=== PATIENT | female | born 1995 | race Caucasian/White ===

== ENCOUNTER 2023-02-08 09:54 | Outpatient (REF) | payer OTHER, SELFPAY ==
[2023-02-08 10:10] LABS: MANUAL DIFF FLAG NO
[2023-02-08 10:30] LABS: Basophils Absolute Auto 0.1 X10*3/uL (0.0-0.2); Basophils Percent Auto 0.6 % (0-2); Eosinophils Absolute Auto 0.2 X10*3/uL (0.0-0.4); Eosinophils Percent Auto 1.3 % (0-4); Hematocrit 43.8 % (37.0-47.0); Hemoglobin 14.5 g/dl (12.0-16.0); Imm Gran Abs Auto 0.07 X10*3/uL (0.00-0.03); Imm Gran Pct Auto 0.6 % (0.0-0.4); Lymphocytes Absolute Auto 4.6 X10*3/uL (1.2-4.9); Lymphocytes Percent Auto 37.1 % (20-40); Mean Corpuscular HGB Conc 33.1 g/dl (31.0-35.0); Mean Corpuscular Hemoglobin 30.4 pg (27.0-33.0); Mean Corpuscular Volume 91.8 fL (80.0-98.0); Mean Platelet Volume 12.2 fL (9.4-12.3); Monocytes Absolute Auto 0.6 X10*3/uL (0.1-1.2); Monocytes Percent Auto 5.1 % (2-11); Neutrophils Absolute Auto 6.9 x10*3/uL (2.0-8.3); Neutrophils Percent Auto 55.3 % (45-73); Platelet Count 245 X10*3/uL (160-400); Red Blood Count 4.77 X10*6/uL (4.20-5.50); Red Cell Distribution Width 13.1 % (11.0-16.0); White Blood Count 12.5 X10*3/uL (4.8-10.8)
[2023-02-08 11:24] LABS: Alanine Aminotransferase 23 U/L (0-31); Albumin Level 4.2 g/dL (3.5-5.0); Alkaline Phosphatase 75 U/L (39-117); Anion Gap 14 (12-20); Aspartate Amino Transferase 15 U/L (5-31); Bilirubin Total 0.4 mg/dL (0.0-1.0); Blood Urea Nitrogen 9 mg/dL (9-16); Calcium 9.8 mg/dL (8.4-10.2); Carbon Dioxide 20 mmol/L (22-29); Chloride 109 mmol/L (96-108); Cholesterol 181 mg/dL (<200); Estimated Glomerular Filt Rate > 60; Glucose Fasting 79 mg/dL (60-99); HDL Cholesterol 57 mg/dL (>40); LDL Cholesterol Calculated 92 mg/dL (<100); Potassium 4.1 mmol/L (3.3-5.1); Sodium 139 mmol/L (135-145); Total Protein 7.4 g/dL (6.5-8.0); Triglycerides 160 mg/dL (<150)
[2023-02-08 11:38] LABS: TSH reflex Free T4 1.93 uIU/mL (0.32-4.0)
[2023-02-08 13:56] LABS: Syphilis Screen Nonreactive (Nonreactive)
[2023-02-10 03:53] LABS: HBS Num1 0.35 mIU/mL (0-7.99); HBc Num1 0.07 S/CO (0.00-0.79); HBsAGNum1 0.25 S/CO (0.00-0.99); HIV AB/AG Nonreactive (Nonreactive); HIV Num 1 0.04 S/CO (0.00-0.99); Hepatitis B Core Antibody Nonreactive (Nonreactive); Hepatitis B Surface Antigen Negative (Negative); ~HepC Num1 0.03 S/CO (0.00-0.79); ~Hepatitis B Surface Antibody NONREACTIVE (Nonreactive); ~Hepatitis C Antibody Nonreactive (Nonreactive)
== END 2023-02-08 09:55 | disposition home or self-care (01) ==
LOC: HO.LAB 09:54
PROVIDERS: PCP Family Medicine; Visit Provider Family Medicine
DX: Z00.00 Encounter for general adult medical examination without abnormal findings (principal); Z20.2 Contact with and (suspected) exposure to infections with a predominantly sexual mode of transmission; I10 Essential (primary) hypertension
CPT/HCPCS: 36415; 80053; 80061; 84443; 85025; 86704; 86706; 86780; 86803; 87340; 87389

== ENCOUNTER 2023-02-14 15:36 | Outpatient (AMB) | payer OTHER, SELFPAY ==
--- NOTE | 2023-02-14 15:38 | A.OFFPC_ITS ---
Vital Signs 02/14/23 15:43 Height 5 ft 3 in Weight 204 lb 7 oz BMI 36.2 BP 120/72 Blood Pressure Location Lt brachial Position Sitting Pulse 88 Pulse Source Pulse Oximeter Pulse Oximetry (%) 99 Oxygen Delivery Method Room Air Intake Visit Reasons: CPE with f/u labs and health maintenance Intake Note: Patient is here for her physical today. She would like to revisit migraine situation, still experiencing. She also had her labs done. Allergies No Known Allergies Allergy (Verified 02/14/23 15:42) Tobacco use date assessed: 02/14/23 HPI CPE with f/u labs and health maintenance HPI Details 27 y/o female presents for a CPE with f/ u labs and health maintenance. Labs were drawn 02/08/23. Reviewed labs with pt. WBC elevated at 12.5. Pt states she feels fine. 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 Triglycerides 160. TC 181. LDL 92. HDL 57. Pt reports ongoing migraines. She reports she keeps herself active. 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 Cognitive needs: No Hearing needs: No Vision needs: No Review of Systems Const Denies chills, Denies fatigue, Denies fever(s), Denies headache(s) and Denies weakness Eyes Denies change in vision ENT Denies dizziness, Denies headache(s), Denies hearing loss, Denies nasal congestion, Denies sinus pain, Denies sinus pressure and Denies sore throat Card Denies chest pain, Denies lightheadedness, Denies dyspnea and Denies other (palpitations) Resp Denies cough, Denies dyspnea and Denies wheezing GI Denies abdominal pain, Denies melena, Denies hematochezia, Denies change in bowel habits, Denies dyspepsia and Denies nausea Denies hematuria and Denies dysuria Musc Denies abnormal gait, Denies myalgias, Denies arthralgias, Denies numbness and Denies tingling Skin/Breast Denies rash, Denies unusual bruising and Denies wounds Neuro Denies abnormal gait, Denies dizziness, Denies headache(s), Denies memory loss, Denies numbness, Denies Sensory deficit (Neuro), Denies tingling and Denies weakness Psych Denies anxiety, Denies depression and Denies memory loss Endo Denies cold intolerance, Denies fatigue, Denies heat intolerance, Denies polydipsia and Denies polyuria Jean/Lymph Denies easy bleeding and Denies easy bruising Aller/Immun Denies wheezing Physical exam (Primary Care) Vital Signs: Last Vital Signs Pulse 88 02/14/23 15:43 BP 120/72 02/14/23 15:43 Pulse Ox 99 02/14/23 15:43 Oxygen Delivery Method Room Air 02/14/23 15:43 BMI result Body Mass Index 36.2 Tobacco/Smoking Status: Tobacco use Status Tobacco use date assessed 02/14/23 02/14/23 15:47 Patient Tobacco Use Status Never used Tobacco 02/14/23 15:40 e-Cigarette/Vaping Use Never Used 02/14/23 15:47 Const General: no acute distress, well developed, alert and awake Nutritional Appearance: well nourished Orientation/consciousness: patient oriented x3 HENMT Head: Yes normocephalic and Yes atraumatic Ears: hearing grossly normal bilaterally and TM's normal bilaterally General nose exam: Normal external nose present and Normal nares present Mouth: Normal oral and palatal mucosa present and moist mucous membranes Teeth and gingiva: dentition normal Throat: Yes posterior oropharynx normal Eyes General: appearance normal, both eyes and all related structures Pupils: Equal, round and reactive pupils present and Pupil accommodation reflex normal EOM: EOMs intact bilaterally Neck Neck: Yes normal visual inspection, Yes no lymphadenopathy and Yes trachea midline Thyroid: Thyroid normal Carotids: no bruits Lymphatic: no lymphadenopathy noted Chest Chest palpation & inspection: normal inspection of the chest Resp Effort & Inspection: normal respiratory effort Auscultation: clear to auscultation bilaterally Cardio Rate: regular rate Rhythm: regular rhythm Heart sounds: S1 normal heart sound present, S2 normal heart sound present, no gallops, no murmurs and no rubs Bruits: no abdominal aortic bruits and no carotid bruits GI Palpation (GI): No Abdominal aortic bruit present, Soft to palpation, nontender, No hepatosplenomegaly present and No Rebound tenderness present Auscultation: normal bowel sounds General: Yes no CVA tenderness Back/Spine/Pelvis Back: no CVA tenderness Cervical Spine: cervical ROM normal and No Cervical spine tenderness Thoracic/Lumbar Spine: thoraco-lumbar ROM normal, No pain with thoraco-lumbar ROM, No thoracic spinal tenderness and No lumbar spinal tenderness Skin Lesions: no lesions Rashes: no rashes Trauma: no lacerations or abrasions Wounds: no wounds Nails: normal Neuro General: patient oriented x3 Cranial nerves: Yes Equal, round and reactive pupils present Cognition (Neuro): normal cognition Gait exam (Neuro): Normal gait present Motor exam (neuro): 5/5 motor strength present throughout Sensory Exam: No Sensory deficit (Neuro) Deep tendon reflexes (DTR's): Right patellar reflex intensity grade: 2+ and Left patellar reflex intensity grade: 2+ Extrem General: Yes normal to inspection and No edema Psych Appearance: grossly normal Affect: normal affect Attitude: cooperative Thought process: Normal thought process present Assessment and Plan Assessment & Plan (1) Adult general medical exam: Code(s): Z00.00 - Encounter for general adult medical examination without abnormal findings Plan: 27-year-old?female?presents?for?complete?physical?exam Encouraged?healthy?diet?with?active?lifestyle?and?plenty?of?exercise (2) Elevated WBC count: Code(s): D72.829 - Elevated white blood cell count, unspecified Plan: Elevated?white?blood?count?and?patient?notes?that she?may?have?been?mildly?ill?prior?to?getting?labs?done (3) Migraines: Code(s): G43.909 - Migraine, unspecified, not intractable, without status migrainosus Plan: Patient?gets?migraines?with?classic?aura?which?manifests?as?visual?disturbances? which?interfere?with?driving?and?working. Was?unable?to?get?sumatriptan?due?to?some?insurance?issues?but?she?would?like?to ?try?again?so?I?have?sent?refill. Will?give?her?a?letter?for?work?letting?them?know?that?when?she?has?a?migraine?s tart ing,?she?may?not?be?able?to?get?to?work?due?to?visual?disturbances.??Also?she?ma y?need?to?take?some?time?to?rest?when?or?begins. Also?discussed?with?her?she?may?want?to?consider?FMLA?intermittent?lekay e?and?she?will?look?into?this Medications: Refilled sumatriptan succinate take 1 tab at onset of headache; if no relief may repeat 1 tab after at least 2 hrs; max = 4 tabs/24 hr PO 30 days 12 tabs 2RF Coding Level of Care Code Est Pt Prev Care 18-39y(60048) Diagnoses Adult general medical exam Z00.00 Elevated WBC count D72.829 Migraines G43.909
[2023-02-14 15:43] VITALS: BP 120/72; PULSE 88; O2SAT 99; BMI 36.2
== END 2023-02-14 16:05 | disposition home or self-care (01) ==
PROVIDERS: PCP Family Medicine; Visit Provider Family Medicine
DX: Z00.00 Encounter for general adult medical examination without abnormal findings (principal); D72.829 Elevated white blood cell count, unspecified; G43.909 Migraine, unspecified, not intractable, without status migrainosus
CPT/HCPCS: 99395

== ENCOUNTER 2023-03-05 13:41 | Outpatient (AMB) | payer OTHER, SELFPAY ==
--- NOTE | 2023-03-05 13:45 | MHC.OFFVIS ---
Intake Vital Signs 03/05/23 13:46 Height 5 ft 3 in Weight 195 lb BMI 34.5 BP 112/76 Intake Visit Reasons: New patient Annual Intake Note: Scribed for Yaima Benavides CNM by Sirena Amos paramedical aide, on 03/05/2023 at 1:57 PM, EST. Robotics Testing Technician: Robotics Testing Technician Present (Rola) Allergies No Known Allergies Allergy (Verified 03/05/23 13:46) HPI HPI Comments History of Present Illness Details She is a premenopausal woman presenting for annual examination. Doing well with no engineer system administrator concerns. She has a history of endometriosis (non surgical eval.). ~ Occasional flare ups.Treatment plan is continuous use of BC. She tries to eat healthy and stays active with exercise. No monthly menses. Currently on BC, Apri, takes continuously. She denies vaginal itching and irritation. STI screening offered; she declines. Reports that she is UTD. Was done within the last year at her last practice. Records unavailable. Denies family history of breast, ovarian or colon cancer. Paternal grandmother, diabetes. Last pap smear 02/01/2021, was negative. Migraine with aura.~Started 3 years ago.~Ongoing.She reports that she has a rescue medication that helps with her headaches . Followed by PCP. 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 Sexual orientation: Straight/Heterosexual Gender identity: Female Cognitive needs: No Hearing needs: No Vision needs: No Female Reproductive History Menstrual control method: pills Total pregnancies: 0 Date of last pap smear: 02/01/21 (neg) Review of Systems Const All systems reviewed & are unremarkable except as noted in HPI and below Reports as per HPI Eyes Reports no additional complaints ENT Reports no additional complaints Card Reports no additional complaints Resp Reports no additional complaints GI Reports as per HPI and Reports no additional complaints Reports as per HPI Musc Reports no additional complaints Skin/Breast Reports as per HPI Neuro Reports no additional complaints Psych Reports no additional complaints Endo Reports no additional complaints Jean/Lymph Reports no additional complaints Aller/Immun Reports no additional complaints Physical Exam Vital Signs: Last Vital Signs BP 112/76 03/05/23 13:46 BMI result Body Mass Index 34.5 Const General: cooperative, healthy appearing, no acute distress, well developed and alert Orientation/consciousness: patient oriented x3 HEENT Head: Yes normal to inspection Eyes General: appearance normal, both eyes and all related structures Neck Neck: Yes normal visual inspection Thyroid: Thyroid normal Chest Chest palpation & inspection: normal inspection of the chest and other (no puckering, dimpling, peau de orange, retraction, discharge, masses) Breast/axilla inspection: normal inspection of the breasts Breast/axilla palpation: normal palpation of the breasts Resp Effort & Inspection: normal respiratory effort GI Inspection: Yes normal to inspection Palpation (GI): Soft to palpation Rectal Exam - Female: deferred General: Yes bladder normal to palpation External Female Exam: normal external appearance and normal appearance of the urethra Speculum Exam - Vagina: normal appearance of the vagina, normal palpation and normal vaginal discharge Speculum Exam - Cervix: normal appearance of the cervix and normal palpation Bimanual exam- vagina & uterus: normal bimanual exam, normal palpation, uterine size normal, bladder normal to palpation, normal palpation and non-tender Bimanual Exam- Adnexa, other: no masses Skin General skin exam: no rashes or lesions noted Rashes: no rashes Neuro General: patient oriented x3 Cognition (Neuro): normal cognition Extrem General: Yes normal to inspection Psych Attitude: cooperative Thought process: Normal thought process present Assessment & Plan Assessment & Plan (1) Encounter for annual routine gynecological examination: Code(s): Z01.419 - Encounter for gynecological examination (general) (routine) without abnormal findings Plan: Discussed: Current recommendations for pap smears per ASCCP guidelines. Breast awareness and periodic self breast exams. Maintaining a healthy lifestyle including a well balanced diet and routine exercise. Encouraged condom use for STD and prevention. Encouraged patient to sign up for patient portal. Request all pertinent medical records from [facility] (notes/[place]) and the additional [place] practice last year. All of her questions and concerns were addressed to the best of my ability She will return in one year for AG. (2) Counseling for control, oral contraceptives: Code(s): Z30.09 - Encounter for other general counseling and advice on contraception Plan: Counseled about progesterone, IUD, implant or pill. She would like to stay on the pill. Warnings: go to ER if and loss of vision/blindness, severe headache, chest pain or difficulty breathing, severe abdominal pain, or any pain or swelling in an extremity. RTO for pill check in 3 months. Medications: New norethindrone (contraceptive) (Ela) 0.35 mg PO DAILY 90 tabs 1RF OCP 90 days Coding Level of Care Code New Pt Prev Care 18-39yr(05135 Diagnoses Encounter for annual routine gynecological examination Z01.419 Counseling for control, oral contraceptives Z30.09
[2023-03-05 13:46] VITALS: BP 112/76; BMI 34.5
== END 2023-03-05 14:50 | disposition home or self-care (01) ==
PROVIDERS: PCP Family Medicine; Visit Provider Advanced Practice Midwife
DX: Z01.419 Encounter for gynecological examination (general) (routine) without abnormal findings (principal); Z30.09 Encounter for other general counseling and advice on contraception
CPT/HCPCS: 99385

== ENCOUNTER → 2023-03-05 13:41 | Outpatient (BNVA) | payer OTHER, SELFPAY | PROVIDERS: PCP Family Medicine; Visit Provider Advanced Practice Midwife ==

== ENCOUNTER 2023-06-10 15:22 | Outpatient (AMB) | payer OTHER, SELFPAY ==
--- NOTE | 2023-06-10 15:32 | A.OFFVIS_ITS ---
Intake Vital Signs 06/10/23 15:33 Height 5 ft 3 in Weight 196 lb BMI 34.7 BP 100/66 Intake Visit Reasons: 3 month pill check Survey Coordinator: Survey Coordinator Present Allergies No Known Allergies Allergy (Verified 06/10/23 15:33) Is last menstrual period known: Yes HPI HPI Comments History of Present Illness Details Patient is here for a follow-up on her blood pressure and pill check. History of migraines with aura. She reports doing well with the Agnes initially she had some breakthrough bleeding, she is taking her pill on time, has no other concerns. 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 Sexual orientation: Straight/Heterosexual Gender identity: Female Cognitive needs: No Hearing needs: No Vision needs: No Review of Systems Const All systems reviewed & are unremarkable except as noted in HPI and below Endo Reports no additional complaints Physical Exam Vital Signs: Last Vital Signs BP 100/66 06/10/23 15:33 BMI result Body Mass Index 34.7 Const General: cooperative, healthy appearing and no acute distress Psych Appearance: well kempt Attitude: cooperative Thought process: Normal thought process present Assessment & Plan Assessment & Plan (1) Surveillance for control, oral contraceptives: Code(s): Z30.41 - Encounter for surveillance of contraceptive pills Plan control hormone use warnings: go to ER if and loss of vision, blindness, severe headache, chest pain or difficulty breathing, severe abdominal pain, or any pain or swelling in an extremity. Efficacy of progesterone only pills, additional backup if needed for intimacy. Discussed migraine triggers self-help measures and website recommendations for review consider magnesium at bedtime initial dosing and brand. The schedule annual exam for February 2024. All of her questions and concerns were addressed to the best of my ability and shared decision making. She is agreeable to the plan of care. This note is constructed using voice recognition software. While every effort has been made to ensure accuracy, business center representative errors may have been included. Medications: Refilled norethindrone (contraceptive) (Ela) 0.35 mg PO DAILY 90 days 90 tabs 3RF OCP Coding Level of Care Code Est Pt Level 3 (56883) Diagnoses Surveillance for control, oral contraceptives Z30.41
[2023-06-10 15:33] VITALS: BP 100/66; BMI 34.7
== END 2023-06-10 15:54 | disposition home or self-care (01) ==
LOC: HO.HWS 15:23
PROVIDERS: PCP Family Medicine; Visit Provider Advanced Practice Midwife
DX: Z30.41 Encounter for surveillance of contraceptive pills (principal)
CPT/HCPCS: 99213

== ENCOUNTER → 2023-06-10 15:22 | Outpatient (BNVA) | payer OTHER, SELFPAY | PROVIDERS: PCP Family Medicine; Visit Provider Advanced Practice Midwife ==

== ENCOUNTER 2023-12-16 09:51 | Outpatient (AMB) | payer OTHER, SELFPAY ==
--- NOTE | 2023-12-16 09:58 | A.OFFVIS_ITS ---
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 Allergies No Known Allergies Allergy (Verified 12/16/23 10:10) Medication List - Last Reconciled 12/16/23 by KIM Perez levocetirizine (Xyzal) 5 mg PO DAILY norethindrone (contraceptive) (Ela) 0.35 mg PO DAILY 90 days sumatriptan succinate take 1 tab at onset of headache; if no relief may repeat 1 tab after at least 2 hrs; max = 4 tabs/24 hr PO 30 days HPI Comments Details: Right-handed 28-yr-old female presents for new pt evaluation of headache disorder. Pt reports pt reports she had had migraine w/ visual since age 19, which has been worsening in the last 3 yrs. She now can have visual aura w/o headache. 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 PMH and ROS are notable for:? Musculoskeletal disorders or injury: .Chronic neck and back pain. Had mayo mammoplasty which helped. Sees a chiropractor and has massage routinely. GI d/o: GERD, h/o gluten intolerance. 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 Family history of migraine or other headache disorder: mother and sister- have migraine but neither have aura. Pertinent denials include: History of concussion/head injury, Mood d/o, Sleep d/o, Respiratory d/o, CV disease, Clotting or hematology d/o, Endocrine d/o, metabolic d/o, History of seizure, syncope, or drop attacks, Constipation, Leg Cramps, Family history of migraine or other headache disorder Lifestyle considerations: Sleep routine: Usual bedtime: 10pm and wake-up time: 6am Sleep difficulties: Uses melatonin every other night. Mild snoring. Fatigue/sleepiness. 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 Family planning: none at this time. Headache questionnaire:? Age/time of onset: 19 Preceding causes: no known causes Previous work-up: denies Typical headache characteristics: Prodrome symptoms: Unsure. Possibly Yawning. Aura: Bilateral, though one side will be worse) Starts to see floaters, feels a bit disconnected, head feels tighter, will have holes in her vision or see squiggly lines- x's up to an hour. Has 15-20 minutes before vision would impair driving. Pain intensity: moderate-severe Location, quality, characteristics: throbbing pain in bilateral temples, top of head. Occipital/upper neck tightness. Associated symptoms: photophobia, phonophobia, nausea, feels hot, not right in space dizziness, fatigue, cognitive difficulties/word finding difficulties, activity intolerance, bilateral facial numbness. Postdrome: Lingering visual-spacial distortion (this can occur w/wo headache component) Triggers: sounds, stress, weather changes, certain foods: hot dogs Menstrual cycle- never noticed- but cycle stopped at age 16. Time of day: More in mid-day 11am-3pm, but can wake up w/ migraine. Duration and Frequency: 6-7 milder-mod headaches in the past month, During the school year, she has 2-3 visual auras per week, and 1 full migraine w/ aura attack can last 5-6-12hrs or more and occur 1 day per week. How does headache impact your life? has had to miss work. or go into work late, leave early or sometimes stay late as she could not drive home. Current acute medication use/interventions: Tylenol helps milder headaches. Sumatriptan 50mg helps some after a while but causes intense sleepiness and cannot stay at work if she takes it. Current preventative medication use: None Non-pharmacological interventions: Ice on back of her head. Caffeine, sugar. Rests in a dark/quiet place. [facility] Medical History (Updated 12/22/23 @ 15:11 by KIM Perez) Endometriosis Migraine with aura Seasonal allergies Surgical History Hx of bilateral breast reduction surgery Hx of wisdom tooth extraction Hx of tonsillectomy H/O left knee surgery Family History Mother Hypertension Father Hypertension Paternal Grandmother Diabetes Social History Housing: House Alcohol intake: current Alcohol intake frequency: a few times a month Patient Tobacco Use Status: Never used Tobacco e-Cigarette/Vaping Use: Never Used service: No Current occupational status: employed 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 Bilateral mild posterior cervical tightness. Cervical ROM: full Left Spurling: normal Right Spurling: normal. General: patient oriented x3 Cranial nerves: Yes CN's II-XII intact bilaterally Cognition (Neuro): normal cognition Gait exam (Neuro): Normal gait present Motor exam (neuro): 5/5 motor strength present throughout Deep tendon reflexes (DTR's): Right triceps reflex intensity grade: 2+, Left triceps reflex intensity grade: 2+, Rt Biceps (C5, C6): 2+, Left biceps reflex intensity grade: 2+, Right brachioradialis reflex intensity grade: 2+, Left brachioradialis reflex intensity grade: 2+, Right patellar reflex intensity grade: 2+ and Left patellar reflex intensity grade: 2+ Coordination: [id number] test normal, tandem gait normal and Romberg test negative Pupils: Normal pupillary reactivity/response: bilateral Psych Appearance: grossly normal Mental Status: mental status grossly normal Speech and movement: Normal speech and movement present Affect: normal affect Attitude: cooperative Thought process: Normal thought process present Assessment & Plan Assessment & Plan (1) Snoring: Code(s): R06.83 - Snoring Category: Medical (2) Sleep difficulties: Code(s): G47.9 - Sleep disorder, unspecified Category: Medical (3) Migraine with aura: Code(s): G43.109 - Migraine with aura, not intractable, without status migrainosus Category: Medical (4) Excessive daytime sleepiness: Comment: ESS 10 Code(s): G47.19 - Other hypersomnia Category: Medical Plan Pt advised to undergo the following studies, however pt requests we hold initiating orders until she has a new insurance plan (her current plan expires 12/20/23). She will call us when she has new insurance. Brain MRI w/wo to assess for secondary etiology of headache a/w bilateral facial numbness and episodes visual aura w/o headache. HST to assess for sleep apnea For overall headache management: * Optimize good self-care, including but not limited to maintaining a healthy diet, adequate fluid intake, adequate sleep, and engaging in regular physical activity. * Track headaches, especially after any treatment regimen changes. Migraine famPlus is one of many headache tracking apps. * Information shared on non-pharmacological interventions which may help to alleviate headache attack burden. For sound sensitivity: Patent may benefit from trying noise cancellation ear plugs. Neuromodulation devices, which can be used alone or with pharmacological treatment. For acute headache treatment: Discussed importance of taking acute medications at the first sign of headache, however stressed importance of avoiding acute medication overuse (especially with combined headache medications). Trial Rizatriptan 10mg tab, 1/2 - 1 tab (5-10mg) at onset of headache, may repeat in 2 hours. Max of 2 tabs (200mg) per 24 hours. May adjunct with OTC Tylenol 650mg every 4 hours, Ibuprofen (liquigel) 600mg every 6 hours, or Naproxen (liquigel) 440mg every 12 hrs as needed. Potential adverse effects of triptans, include but are not limited to nausea, fatigue, chest tightness/tingling (usually passes within a few minutes), medication overuse headaches. Previous acute migraine medication trials: Sumatriptan 50mg not fully effective, and caused profound sleepiness. Acute migraine medication contraindications: None at this time For headache prevention medication: Preventative medications should be taken routinely as prescribed for best effect, it may take several weeks for full effect to take effect. Start Riboflavin 400mg qam Continue OTC Magnesium Glycinate 400mg qhs Start Amitriptyline 10-20mg qhs, Potential adverse effects of TCAs, including but not limited to fatigue, cardiac arrhythmias, mood changes. Previous migraine prevention medication trials: None Migraine prevention medication contraindications: None at this time Pt seen in collaboration w/ Dr Yeni Brown. Pt to follow-up in 4-6 months or sooner prn. Medications: Discontinued sumatriptan succinate Discontinued Reason: Doctor's Order take 1 tab at onset of headache; if no relief may repeat 1 tab after at least 2 hrs; max = 4 tabs/24 hr PO 30 days 12 tabs 2RF Coding Level of Care Code New Pt Level 4 (85762) Diagnoses Snoring R06.83 Sleep difficulties G47.9 Migraine with aura G43.109 Excessive daytime sleepiness G47.19
[2023-12-16 09:59] VITALS: BP 114/80; PULSE 88; O2SAT 98; BMI 34.4
== END 2023-12-16 11:50 | disposition home or self-care (01) ==
PROVIDERS: PCP Family Medicine; Visit Provider Nurse Practitioner Family
DX: R06.83 Snoring (principal); G47.9 Sleep disorder, unspecified; G43.109 Migraine with aura, not intractable, without status migrainosus; G47.19 Other hypersomnia
CPT/HCPCS: 99204

== ENCOUNTER → 2023-12-16 09:51 | Outpatient (BNVA) | payer OTHER, SELFPAY | PROVIDERS: PCP Family Medicine; Visit Provider Nurse Practitioner Family ==

== ENCOUNTER 2024-02-16 15:57 | Outpatient (AMB) | payer OTHER, SELFPAY ==
--- NOTE | 2024-02-16 16:09 | MHC.PC.OV ---
Vital Signs 02/16/24 16:15 Height 5 ft 3 in Weight 193 lb 6 oz BMI 34.3 BP 117/69 Blood Pressure Location Lt brachial Position Sitting Respiration 16 Pulse 84 Pulse Source Pulse Oximeter Temp 97.7 F Temp Source Temporal Artery Scan Pulse Oximetry (%) 98 Oxygen Delivery Method Room Air Intake Visit Reasons: CPE with f/u labs and health maintenance Intake Note: CPE Is last menstrual period known: No Post menopausal: No Patient : No Allergies No Known Allergies Allergy (Verified 02/16/24 16:10) Medication List - Last Reviewed 02/16/24 by LUCHO Schreiber amitriptyline 10 - 20 mg (1 - 2 x 10 mg) PO BEDTIME 30 days levocetirizine (Xyzal) 5 mg PO DAILY norethindrone (contraceptive) (Ela) 0.35 mg PO DAILY 90 days riboflavin (vitamin B2) 400 mg PO DAILY 30 days rizatriptan 5 - 10 mg (0.5 - 1 x 10 mg) PO Q2H PRN 21 days spironolactone 150 mg PO BID Tobacco use date assessed: 02/16/24 Dental Screening Dental Screen Date: 02/16/24 Did you have a dental visit in the last 12 months?: Yes Did you have a dental problem in the last 6 months where you did not have access to dental care?: No Was dental information given to patient?: Patient has dentist HPI CPE with f/u labs and health maintenance HPI Details 28 y/o female presents for a CPE with f/u labs and health maintenance. No recent labs to review. PFSH Medical History (Updated 12/22/23 @ 15:11 by KIM Perez) Endometriosis Migraine with aura Seasonal allergies Surgical History Hx of bilateral breast reduction surgery Hx of wisdom tooth extraction Hx of tonsillectomy H/O left knee surgery Family History Mother Hypertension Father Hypertension Paternal Grandmother Diabetes Social History (Updated 02/16/24 @ 16:13 by LUCHO Schreiber) Housing: House Alcohol intake: current Alcohol intake frequency: a few times a month Patient Tobacco Use Status: Never used Tobacco e-Cigarette/Vaping Use: Never Used Use of substances other than those prescribed or required for medical reasons: No Patient : No service: No Current occupational status: employed 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 1. Little interest or pleasure in doing things: not at all 2. Feeling down, depressed, or hopeless: not at all 3. Trouble falling or staying asleep, or sleeping too much: not at all 4. Feeling tired or having little energy: several days 5. Poor appetite or overeating: not at all 6. Feeling bad about yourself - or that you are a failure or have let yourself or your family down: not at all 7. Trouble concentrating on things, such as reading the newspaper or watching television: several days 8. Moving or speaking so slowly that other people could have noticed. Or the opposite - being so fidgety or restless that you have been moving around a lot more than usual: not at all 9. Thoughts that you would be better off or of hurting yourself in some way: not at all Total score: 2 Depression Screening Interpretation: Negative Depression Screening Done: Yes 17819 - PHQ-9 Billing: Yes Source: Developed by Drs. Jacky Alas, Domenica Gonzales, Filipe Tomlinson and colleagues, with an educational natacha from [employer]. Thrive Questionnaire Date Thrive assessed: 02/16/24 I am a: Patient What is your living situation today?: I have a steady place to live Within the past 12 months, did the food you bought not last and you didn't have the money to get more?: Never true Within the past 12 months, did you worry whether your food would run out before you got money to buy more?: Never true Do you have trouble paying for medicines?: No Do you have trouble getting transportation to medical appointments?: No Do you have trouble paying your heating and electricity bill?: No Do you have trouble taking care of your child, family member or friend?: No Do you have trouble with day-to-day activities such as bathing, preparing meals, shopping, managing finances, etc.?: No Are you currently unemployed and looking for a job?: No Are you interested in more education?: No Please select the resources that you would like help with: None Currently or been in a relationship where the following occur: No concerns reported THRIVE Score: 0 AUDIT C Alcohol Use Questionnaire (AUDIT-C) 1. How often do you have a drink containing alcohol?: 2-4 times a month 2. How many drinks containing alcohol do you have on a typical day when you are drinking?: 1 or 2 3. How often do you have six or more drinks on one occasion?: Less than monthly Total Score: 3 KELLY-7 AMB Questionnaire KELLY-7 Date KELLY - 7 assessed: 02/16/24 Feeling nervous, anxious, or on edge: 0 = Not at all Not being able to stop or control worryin = Not at all Worrying too much about different things: 0 = Not at all Trouble relaxin = Not at all Being so restless that it is hard to sit still: 0 = Not at all Becoming easily annoyed or irritable: 0 = Not at all Feeling afraid as if something awful might happen: 0 = Not at all Total KELLY-7 score (0-4 normal; 5-9 mild; 10-14 moderate; 15-21 severe): 0 Source: Developed by Drs. Jacky Alas, Domenica Gonzales, Filipe Tomlinson and colleagues, with an educational natacha from [employer]. KELLY-7 Assessment Billing KELLY-7 Assessment Tool: KELLY-7 Assessment 55870 Review of Systems Const Denies chills, Denies fatigue, Denies fever(s), Denies headache(s) and Denies weakness Eyes Denies change in vision ENT Denies dizziness, Denies headache(s), Denies hearing loss, Denies nasal congestion, Denies sinus pain, Denies sinus pressure and Denies sore throat Card Denies chest pain, Denies lightheadedness, Denies dyspnea and Denies other (palpitations) Resp Denies cough, Denies dyspnea and Denies wheezing GI Denies abdominal pain, Denies melena, Denies hematochezia, Denies change in bowel habits, Denies dyspepsia and Denies nausea Denies hematuria and Denies dysuria Musc Denies abnormal gait, Denies myalgias, Denies arthralgias, Denies numbness and Denies tingling Skin/Breast Denies rash, Denies unusual bruising and Denies wounds Neuro Denies abnormal gait, Denies dizziness, Denies headache(s), Denies memory loss, Denies numbness, Denies Sensory deficit (Neuro), Denies tingling and Denies weakness Psych Denies anxiety, Denies depression and Denies memory loss Endo Denies cold intolerance, Denies fatigue, Denies heat intolerance, Denies polydipsia and Denies polyuria Jean/Lymph Denies easy bleeding and Denies easy bruising Aller/Immun Denies wheezing Physical exam (Primary Care) Vital Signs: Last Vital Signs Temp 97.7 F 02/16/24 16:15 Pulse 84 02/16/24 16:15 Resp 16 02/16/24 16:15 BP 117/69 02/16/24 16:15 Pulse Ox 98 02/16/24 16:15 Oxygen Delivery Method Room Air 02/16/24 16:15 BMI result Body Mass Index 34.3 Tobacco/Smoking Status: Tobacco use Status Tobacco use date assessed 02/16/24 02/16/24 16:13 Patient Tobacco Use Status Never used Tobacco 02/16/24 16:13 e-Cigarette/Vaping Use Never Used 02/16/24 16:13 PHQ-9: PHQ-9 Score PHQ-9: Total score 2 02/16/24 16:14 Depression Screening Interpretation: Negative Thrive Assessment: Date of Thrive Assessment Date Thrive assessed 02/16/24 02/16/24 16:14 Currently or been in a relationship where the following occur: No concerns reported Const General: no acute distress, well developed, alert and awake Nutritional Appearance: well nourished Orientation/consciousness: patient oriented x3 HENMT Head: Yes normocephalic and Yes atraumatic Ears: hearing grossly normal bilaterally and TM's normal bilaterally General nose exam: Normal external nose present and Normal nares present Mouth: Normal oral and palatal mucosa present and moist mucous membranes Teeth and gingiva: dentition normal Throat: Yes posterior oropharynx normal Eyes General: appearance normal, both eyes and all related structures Pupils: Equal, round and reactive pupils present and Pupil accommodation reflex normal EOM: EOMs intact bilaterally Neck Neck: Yes normal visual inspection, Yes no lymphadenopathy and Yes trachea midline Thyroid: Thyroid normal Carotids: no bruits Lymphatic: no lymphadenopathy noted Chest Chest palpation & inspection: normal inspection of the chest Resp Effort & Inspection: normal respiratory effort Auscultation: clear to auscultation bilaterally Cardio Rate: regular rate Rhythm: regular rhythm Heart sounds: S1 normal heart sound present, S2 normal heart sound present, no gallops, no murmurs and no rubs Bruits: no abdominal aortic bruits and no carotid bruits GI Palpation (GI): No Abdominal aortic bruit present, Soft to palpation, nontender, No hepatosplenomegaly present and No Rebound tenderness present Auscultation: normal bowel sounds General: Yes no CVA tenderness Back/Spine/Pelvis Back: no CVA tenderness Cervical Spine: cervical ROM normal and No Cervical spine tenderness Thoracic/Lumbar Spine: thoraco-lumbar ROM normal, No pain with thoraco-lumbar ROM, No thoracic spinal tenderness and No lumbar spinal tenderness Skin Lesions: no lesions Rashes: no rashes Trauma: no lacerations or abrasions Wounds: no wounds Nails: normal Neuro General: patient oriented x3 Cranial nerves: Yes Equal, round and reactive pupils present Cognition (Neuro): normal cognition Gait exam (Neuro): Normal gait present Motor exam (neuro): 5/5 motor strength present throughout Sensory Exam: No Sensory deficit (Neuro) Deep tendon reflexes (DTR's): Right patellar reflex intensity grade: 2+ and Left patellar reflex intensity grade: 2+ Extrem General: Yes normal to inspection and No edema Psych Appearance: grossly normal Affect: normal affect Attitude: cooperative Thought process: Normal thought process present Coding Level of Care Code Est Pt Level 3 (78711) Est Pt Prev Care 18-39y(11912) Diagnoses Adult general medical exam Z00.00 Screening for cervical cancer Z12.4 Additional Codes KELLY-7 Assessment Billing - KELLY-7 Assessment Tool: KELLY-7 Assessment 95385 ([id number]) Assessment & Plan Assessment & Plan (1) Adult general medical exam: Code(s): Z00.00 - Encounter for general adult medical examination without abnormal findings Category: Medical Plan: 28-year-old?female?presents?for?complete?physical?exam Encouraged?healthy?diet?with?active?lifestyle?and?plenty?of?exercise (2) Screening for cervical cancer: Code(s): Z12.4 - Encounter for screening for malignant neoplasm of cervix Category: Medical Plan: 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 Panel Fast Today Z00.00 - Encounter for general adult medical examination without abnormal findings Complete Blood Count Auto Diff Today Z00.00 - Encounter for general adult medical examination without abnormal findings Microalbumin, Random (w Creat) Today I10 - Essential (primary) hypertension TSH reflex Free T4 Today Z00.00 - Encounter for general adult medical examination without abnormal findings UA and rflx microscopic Today Z00.00 - Encounter for general adult medical examination without abnormal findings
[2024-02-16 16:15] VITALS: BP 117/69; PULSE 84; RESP 16; TEMP 36.5; O2SAT 98; BMI 34.3
== END 2024-02-16 16:31 | disposition home or self-care (01) ==
LOC: HO.HMCFM 15:58
PROVIDERS: PCP Family Medicine; Visit Provider Family Medicine
DX: Z00.00 Encounter for general adult medical examination without abnormal findings (principal)

== ENCOUNTER → 2024-02-16 15:57 | Outpatient (BNVA) | payer OTHER, SELFPAY | PROVIDERS: PCP Family Medicine; Visit Provider Family Medicine ==

== ENCOUNTER 2024-03-10 14:21 | Outpatient (REF) | payer BC, SELFPAY | END 2024-03-10 14:22 | disposition home or self-care (01) | LOC: HO.LNP 14:21 | PROVIDERS: PCP Family Medicine; Visit Provider Advanced Practice Midwife | DX: Z01.419 Encounter for gynecological examination (general) (routine) without abnormal findings (principal) | CPT/HCPCS: 88175 ==

== ENCOUNTER 2024-03-10 14:21 | Outpatient (AMB) | payer BC, SELFPAY ==
--- NOTE | 2024-03-10 14:22 | MHC.OFFVIS ---
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 annual exam Intake Note: refill Ocp's 90 day supply Fundraising Consultant Required: No Product Director: Product Director Present (Jacqueline) Allergies No Known Allergies Allergy (Verified 03/10/24 14:33) Medication List - Last Reconciled 03/10/24 by Jacqueline Castaneda LPN amitriptyline 10 - 20 mg (1 - 2 x 10 mg) PO BEDTIME 30 days levocetirizine (Xyzal) 5 mg PO DAILY norethindrone (contraceptive) (Ela) 0.35 mg PO DAILY 90 days riboflavin (vitamin B2) 400 mg PO DAILY 30 days rizatriptan 5 - 10 mg (0.5 - 1 x 10 mg) PO Q2H PRN 21 days spironolactone 150 mg PO BID Is last menstrual period known: No Post menopausal: No Patient : No Do you need a note to return to daycare/school/sports/work: No HPI Comments Details: She is a premenopausal woman presenting for annual examination. Doing well with no concerns. Taking Ela, history of migraines with aura. Denies any history of deep vein thrombosis or pulmonary embolus. Currently is not sexually active. She denies vaginal itching and irritation. STI screening offered; she declined. She tries to eat healthy and stays active with exercise. Denies family history of breast, ovarian or colon cancer. Last pap smear 2020, negative. 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 Current occupational exposures/hazards: No Sexual orientation: Straight/Heterosexual Gender identity: Female Cognitive needs: No Hearing needs: No Vision needs: No Female Reproductive History Menstrual control method: pills Total pregnancies: 0 Date of last pap smear: 02/01/21 History of abnormal pap smear: No History of STI: No Review of Systems Const All systems reviewed & are unremarkable except as noted in HPI and below Reports as per HPI Eyes Reports no additional complaints ENT Reports no additional complaints Card Reports no additional complaints Resp Reports no additional complaints GI Reports as per HPI and Reports no additional complaints Reports as per HPI Musc Reports no additional complaints Skin/Breast Reports as per HPI Neuro Reports no additional complaints Psych Reports no additional complaints Endo Reports no additional complaints Jean/Lymph Reports no additional complaints Aller/Immun Reports no additional complaints Physical Exam Vital Signs: Last Vital Signs BP 116/80 03/10/24 14:24 BMI result Body Mass Index 34.0 Const General: cooperative, healthy appearing, no acute distress, well developed and alert Orientation/consciousness: patient oriented x3 HEENT Head: Yes normal to inspection Eyes General: appearance normal, both eyes and all related structures Neck Neck: Yes normal visual inspection Thyroid: Thyroid normal Chest Chest palpation & inspection: normal inspection of the chest and other (no puckering, dimpling, peau de orange, retraction, discharge, masses) Breast/axilla inspection: normal inspection of the breasts Breast/axilla palpation: normal palpation of the breasts Resp Effort & Inspection: normal respiratory effort GI Inspection: Yes normal to inspection Palpation (GI): Soft to palpation Rectal Exam - Female: deferred General: Yes bladder normal to palpation External Female Exam: normal external appearance and normal appearance of the urethra Speculum Exam - Vagina: normal appearance of the vagina, normal palpation and normal vaginal discharge Speculum Exam - Cervix: normal appearance of the cervix, normal palpation and Other cervical findings present (Bled slightly with Pap) Bimanual exam- vagina & uterus: normal bimanual exam, normal palpation, uterine size normal, bladder normal to palpation, normal palpation and non-tender Bimanual Exam- Adnexa, other: no masses Skin General skin exam: no rashes or lesions noted Rashes: no rashes Neuro General: patient oriented x3 Cognition (Neuro): normal cognition Extrem General: Yes normal to inspection Psych Attitude: cooperative Thought process: Normal thought process present Assessment & Plan Assessment & Plan (1) Encounter for annual routine gynecological examination: Code(s): Z01.419 - Encounter for gynecological examination (general) (routine) without abnormal findings Category: Medical Plan Discussed: Current recommendations for pap smears per ASCCP guidelines. Breast awareness and periodic breast exams. Maintain a healthy lifestyle including a well balanced diet and routine exercise. Use condoms for STI and prevention. control hormone use warnings: go to ER if and loss of vision, blindness, severe headache, chest pain or difficulty breathing, severe abdominal pain, or any pain or swelling in an extremity. Patient verbalizes understanding and agrees to the plan of care. She was given opportunity to ask questions and all questions were answered to the best of my ability. RTO in one year for annual movement assembly final inspector examination. This note is constructed using voice recognition software. While every effort has been made to ensure accuracy, ui architect errors may have been included. Medications: Refilled norethindrone (contraceptive) (Ela) 0.35 mg PO DAILY 90 days 90 tabs 4RF OCP Coding Level of Care Code Est Pt Prev Care 18-39y(12408) Diagnoses Encounter for annual routine gynecological examination Z01.419
[2024-03-10 14:24] VITALS: BP 116/80; BMI 34.0
== END 2024-03-10 14:55 | disposition home or self-care (01) ==
LOC: HO.HWS 14:21
PROVIDERS: PCP Family Medicine; Visit Provider Advanced Practice Midwife
DX: Z01.419 Encounter for gynecological examination (general) (routine) without abnormal findings (principal)
CPT/HCPCS: 99395

== ENCOUNTER 2024-06-23 08:33 | Outpatient (AMB) | payer BC, SELFPAY ==
--- NOTE | 2024-06-23 08:30 | MHC.OFFVIS ---
Vital Signs 06/23/24 08:31 Height 5 ft 3 in Intake Visit Reasons: Follow up 6mo (R/S: see comments) Intake Note: Patient presents follow up sleep/migraine Research Rn Spec Required: No Allergies No Known Allergies Allergy (Verified 06/23/24 08:30) Medication List - Last Reconciled 06/23/24 by KIM Perez amitriptyline 10 - 20 mg (1 - 2 x 10 mg) PO BEDTIME 30 days levocetirizine (Xyzal) 5 mg PO DAILY norethindrone (contraceptive) (Ela) 0.35 mg PO DAILY 90 days riboflavin (vitamin B2) 400 mg PO DAILY 30 days rizatriptan 5 - 10 mg (0.5 - 1 x 10 mg) PO Q2H PRN 21 days spironolactone 150 mg PO BID HPI Comments Details: Chief Complaint Management of migraine headaches. History of Present Illness The patient is a 28-year-old female presenting in via tele video visit for management of migraines. Occurrence rate has reduced to infrequent- 2 times since her last visit. Job change alleviated possible triggers like mold exposure. Migraines occasionally occur without aura. Brain MRI discussion arose from prior headache worsening but was deferred due to stable condition. Sleep patterns remain unaffected by headaches. The regimen includes amitriptyline, riboflavin, magnesium glycinate, and rizatriptan as needed. Current management maintains reasonable migraine control. Typical headache characteristics: Prodrome symptoms: Unsure. Possibly Yawning. Aura: Bilateral, though one side will be worse) Starts to see floaters, feels a bit disconnected, head feels tighter, will have holes in her vision or see squiggly lines- x's up to an hour. Has 15-20 minutes before vision would impair driving. Pain intensity: moderate-severe Location, quality, characteristics: throbbing pain in bilateral temples, top of head. Occipital/upper neck tightness. Associated symptoms: photophobia, phonophobia, nausea, feels hot, not right in space dizziness, fatigue, cognitive difficulties/word finding difficulties, activity intolerance, bilateral facial numbness. Postdrome: Lingering visual-spacial distortion (this can occur w/wo headache component) Triggers: sounds, stress, weather changes, certain foods: hot dogs Menstrual cycle- never noticed- but cycle stopped at age 16. Time of day: More in mid-day 11am-3pm, but can wake up w/ migraine. 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 Current occupational exposures/hazards: No Sexual orientation: Straight/Heterosexual Gender identity: Female Cognitive needs: No Hearing needs: No Vision needs: No Physical Exam Const General: cooperative and no acute distress Orientation/consciousness: patient oriented x3 Resp Effort & Inspection: normal respiratory effort and able to speak in complete sentences Neuro General: patient oriented x3 Cognition (Neuro): normal cognition Psych Appearance: grossly normal Mental Status: mental status grossly normal Speech and movement: Normal speech and movement present Affect: normal affect Attitude: cooperative Assessment & Plan Assessment & Plan (1) Migraine with aura: Code(s): G43.109 - Migraine with aura, not intractable, without status migrainosus Category: Medical (2) Snoring: Code(s): R06.83 - Snoring Category: Medical (3) Sleep difficulties: Comment: Improved Code(s): G47.9 - Sleep disorder, unspecified Category: Medical (4) Excessive daytime sleepiness: Comment: ESS 10 Code(s): G47.19 - Other hypersomnia Category: Medical Plan Discussion Notes I discussed with the patient the effective management of her migraines with the current regimen. We addressed the suspected environmental factor from her previous workplace as a trigger. I advised that the prophylactic use of amitriptyline, riboflavin, and magnesium glycinate should continue. Rizatriptan's efficacy was noted, and refills have been arranged. The need for diagnostic MRI was deemed unnecessary at this stage due to symptom control. We agreed on monitoring symptoms, particularly if there is any change in frequency or intensity. The patient was advised to follow up in six months or sooner if needed. Patient was informed and verbally consented to the use of an ambient scribe for clinic note documentation during this visit. For overall headache management: Optimize good self-care, including but not limited to maintaining a healthy diet, adequate fluid intake, adequate sleep, and engaging in regular physical activity. Track headaches, especially after any treatment regimen changes. [employer] is one of many headache tracking apps. Information previously shared on non-pharmacological interventions which may help to alleviate headache attack burden. For sound sensitivity: Patent may benefit from trying noise cancellation ear plugs. Neuromodulation devices, which can be used alone or with pharmacological treatment. For acute headache treatment: Discussed importance of taking acute medications at the first sign of headache, however stressed importance of avoiding acute medication overuse (especially with combined headache medications). Continue Rizatriptan 10mg tab, 1/2 - 1 tab (5-10mg) at onset of headache, may repeat in 2 hours. Max of 2 tabs (200mg) per 24 hours. May adjunct with OTC Tylenol 650mg every 4 hours, Ibuprofen (liquigel) 600mg every 6 hours, or Naproxen (liquigel) 440mg every 12 hrs as needed. Previous acute migraine medication trials: Sumatriptan 50mg not fully effective, and caused profound sleepiness. Acute migraine medication contraindications: None at this time For headache prevention medication: Preventative medications should be taken routinely as prescribed for best effect, it may take several weeks for full effect to take effect. Continue Riboflavin 400mg qam Continue OTC Magnesium Glycinate 400mg qhs Continue Amitriptyline 10mg qhs, Previous migraine prevention medication trials: None Migraine prevention medication contraindications: None at this time Pt to follow-up in 6 months or sooner prn. Medications: Changed From amitriptyline 10 - 20 mg (1 - 2 x 10 mg) PO BEDTIME 30 days 60 tabs 3RF To amitriptyline 10 mg PO BEDTIME 90 tabs 1RF 90 days Refilled rizatriptan max 2 tabs per day or 4 tabs per week 5 - 10 mg (0.5 - 1 x 10 mg) PO Q2H PRN 12 tabs 6RF migraine headache 21 days Coding Level of Care Code Tele Est Pt Level 4 (95616) Diagnoses Migraine with aura G43.109 Snoring R06.83 Sleep difficulties G47.9 Excessive daytime sleepiness G47.19
--- OUTSIDE RECORDS SUMMARY | 2024-06-23 09:08 | XMS_ITS | Encounter Summary ---
Author Organization [facility] Address [address] [place] [address] Phone Care Team Providers Care Fruit Room Hand Name Role Phone Cj Ibarra MD Primary Care Provider [phone] Encounter Details Date Type Department Care Team ([facility] st Contact Info) Description 03/03/2017 Conversion Encounter Cj Ibarra MD [address] [place] [id number] Cj Ibarra MD [address] [place] [id number] Social History Tobacco Use Types Packs/Day Years Used Date Smoking Tobacco: Never Comments:never smoker Comments Unknown Sex and Gender Information Value Date Recorded Sex Assigned at Not on file Legal Sex Female 3:40 PM EST Gender Identity Not on file Sexual Orientation Not on file documented as of this encounter Plan of Treatment Not on file documented as of this encounter Visit Diagnoses Not on filedocumented in this encounter Care Teams Fruit Room Hand Relationship Specialty Start Date End Date Cj Ibarra MD [address] [place] [id number] PCP - General 06/11/16 12/27/21 documented as of this encounter
--- OUTSIDE RECORDS SUMMARY | 2024-06-23 09:08 | XMS_ITS | Patient Health Record ---
Author Organization [facility] Address [address] [place] [address] Care Team Providers Care Bow Rehairer Name Role Phone Ara Mclaughlin Unavailable [phone] Reason For Referral No Information Medications Medication SIG (Take, Route, Fr equency, Duration) Notes Start Date End Date Status Spironolactone 50 MG Orally Twice a day Active Minocycline HCl twice daily Ac tive Fluconazole 150 MG 1 tablet Orally now and in 3d for 2 days 05/04/2019 Active ZyrTEC Allergy 10 MG 1 tablet Orally Onc e a day for 30 day(s) Active Apri 0.15-30 MG-MCG 1 tablet Orally Once active pill a day. Skip inactive pills for 365 days Active Social History Tobacco Use: Social History Observation Description Date Details (start date - stop date) Never Smoker NA - NA Tobacco Use/Smoking Question Answer Notes Are you a nonsmoker Alcohol Screen (Audit-C) Question Answer Notes Did you have a drink contain ing alcohol in the past year? Yes How often did you have a dri nk containing alcohol in the past year? 2 to 4 times a month (2 points) How many drinks did you have on a typical day when you were drinking in the past year? 1 or 2 drinks (0 point) Points 2 Tobacco use other than smoking: Question Answer Notes Are you an other tobacco user? No Plan Of Treatment Pending Test Test Name Order Date Ultrasound : Pelvic 01/21/2018 THIN PREP,HPV IF ASCUS, CT/GC (21-29YR) 01/21/2018 Insurance Providers Payer Name Payer Address Payer Phone Subscriber Number Group Number Insured Name Patient Relationship to Insured Coverage Start Date Coverage End Date [employer] [address] [address] [place], [place] [address] [phone] [id number] OVIDIO DEAN Child - Insured has Financial Responsibility Medical (General) History Medical History History ICD Code Dyspareunia not due to a substance or kn own physiological condition F52.6 Surgical History Surgery Date(Month/Year) L Knee Surgery 2011 L Knee Surgery 2010 L Knee Surgery 2008 Tonsillectomy 2006 [place] teeth 2016 Hospitalization History Reason Date(Month/Year) See Surgical Hx
--- OUTSIDE RECORDS SUMMARY | 2024-06-23 09:08 | XMS_ITS | Clinical Summary ---
Author Organization [facility] Address [address] [place] [address] Phone Care Team Providers Care Fur Mixer Name Role Phone Unavailable Primary Care Provider Unavailabl e Immunizations Immunization Administration Dates Next Due DTP 05/23/1995,02/21/1995,01/02/1995 DTaP 12/06/1999,06/03/1996 H1N1 05/02/2009 HPV, Quadrivalent 08/19/2012,02/21/2012,08/13/19 12 Hep B, ped/adol 08/19/1995,1994,1994 Hib (PRP-T) 01/29/1996, 6,02/21/1995, 995 IPV 12/06/1999 Influenza, intranasal, quadrivalent 03/22,04/07/2014,04/26/2013, 012,02/18/2011,01/26/2009 MMR 12/01/1998,01/29/1996 Meningococcal Conjugate 08/02/2010 OPV 05/23/1995,02/21/1995,01/02/1995 Tdap 04/30/2016,02/06/2006 Varicella 08/19/2012,12/07/1998 Social History Tobacco Use Types Packs/Day Years Used Date Smoking Tobacco: Never Comments:never smoker Comments Unknown Sex and Gender Information Value Date Recorded Sex Assigned at Not on file Legal Sex Female 3:40 PM EST Gender Identity Not on file Sexual Orientation Not on file Last Filed Vital Signs Vital Sign Reading Time Taken Comments Blood Pressure 116/64 04/30/2016 12:00 AM EST Pulse - - Temperature - - Respiratory Rate - - Oxygen Saturation - - Inhaled Oxygen Concentration - - Weight 73 kg (161 lb) 04/30/2016 12:00 AM EST Height 160 cm (5' 3 ) 04/30/2016 12:00 AM EST Body Mass Index 28.52 04/30/2016 12:00 AM EST Plan of Treatment Health Maintenance Due Date Last Done Comments Varicella Vaccines (2 of 2 - 13+ 2-dose series) 05/09/2015 08/19/2012, 12/07/1998 Influenza Vaccines (#1) 2023 04/11/20 15, 04/07/2014, 04/26/2013, Additional history exists COVID-19 Vaccine ( - 2023- season) 2023 DTaP,Tdap,and Td Vaccines (8 - Td or Tdap) 04/30/2026 04/30/2016, 02/06/2006, 12/06/1999, Additional history exists Hepatitis B Vaccines Completed 08/19/1995, 1994, 1994 HIB Vaccines Completed 01/29/1996, 05/1995, 02/21/1995, Additional history exists MMR Vaccines Completed 12/01/1998, 01/29/1996 IPV Vaccines Completed 12/06/1999, 05/1995, 02/21/1995, Additional history exists Meningococcal Vaccine Aged Out 08/02/2010 No mike columba eligible based on patient's age to complete this topic HPV Vaccines Completed 08/19/2012, 05/2011, 08/13/2011 Hepatitis A Vaccines Aged Out No long er eligible based on patient's age to complete this topic Men B Vaccine Aged Out No longer elig ible based on patient's age to complete this topic Pneumococcal Vaccine Aged Out No long er eligible based on patient's age to complete this topic Procedures * Due to [place] [employer] law, this organization might not be sharing sensitive test results. Procedure Name Priority Date/Time Associated Diagnosis Comments CHLAMYDIA AND GONORRHEA, AMPLIFIED Routine 05/09/2016 12:00 AM EST from Last 3 Months or Most Recently Relevant to Health Maintenance Results * Due to [place] [employer] law, this organization might not be sharing sensitive test results. * Chlamydia and Gonorrhoea, Amplified (05/09/2016 12:00 AM EST) URINE FOR GC CHLAMYDIA Negative - Results given to patient/fami ly CONVERTED LABS Comment: JIM DELGADO 04/30/2016 01:12:10 PM EST > Please fax results to [phone] Negative - Results given to patient/family Reason: Screening 05/09/2016 Narrative CONVERTED LABS - 05/09/2016 12:00 AM EST Urine for GC & Chlamydia us Jim Delgado MD LAB MICROBIOLOGY - GENERAL OR DERABLES Final Result CONVERTED LABS from Last 3 Months or Most Recently Relevant to Health Maintenance
== END 2024-06-24 08:58 | disposition home or self-care (01) ==
PROVIDERS: PCP Family Medicine; Visit Provider Nurse Practitioner Family
DX: G43.109 Migraine with aura, not intractable, without status migrainosus (principal); R06.83 Snoring; G47.9 Sleep disorder, unspecified; G47.19 Other hypersomnia
CPT/HCPCS: 99214

== ENCOUNTER → 2024-06-23 08:33 | Outpatient (BNVA) | payer BC, SELFPAY | PROVIDERS: PCP Family Medicine; Visit Provider Nurse Practitioner Family ==

== ENCOUNTER 2025-02-12 10:19 | Outpatient (REF) | payer OTHER, SELFPAY ==
--- OUTSIDE RECORDS SUMMARY | 2025-02-12 10:23 | XMS_ITS | Patient Health Record ---
Author Organization [facility] Address [address] [place] [address] Care Team Providers Care Manufactured Buildings Supervisor Name Role Phone Ara Mclaughlin Unavailable [phone] Reason For Referral No Information Medications Medication SIG (Take, Route, Fr equency, Duration) Notes Start Date End Date Status Spironolactone 50 MG Orally Twice a day Active Minocycline HCl twice daily Ac tive Fluconazole 150 MG 1 tablet Orally now and in 3d; Duration: 2 days 05/04/2019 Active ZyrTEC Allergy 10 MG 1 tablet Orally Onc e a day; Duration: 30 day(s) Active Apri 0.15-30 MG-MCG 1 tablet Orally Once active pill a day. Skip inactive pills; Duration: 365 days Active Social History Tobacco Use: [...] Coverage End Date [employer] [address] [address] [place] [address] [id number] OVIDIO DEAN Child - Insured has Financial Responsibility Medical (General) History Medical History History ICD Code Dyspareunia not due to a substance or kn own physiological condition F52.6 Surgical History Surgery Date(Month/Year) L Knee Surgery 2011 L Knee Surgery 2010 L Knee Surgery 2008 Tonsillectomy 2006 [place] teeth 2016 Hospitalization History Reason Date(Month/Year) See Surgical Hx
--- OUTSIDE RECORDS SUMMARY | 2025-02-12 10:23 | XMS_ITS | Clinical Summary ---
Author Organization [facility] Address [address] [place] [address] Phone Care Team Providers Care Block Cableman Name Role Phone Unavailable Primary Care Provider [...] series) 05/09/2015 08/19/2012, 12/07/1998 Influenza Vaccines (#1) 2024 04/11/20 15, 04/07/2014, 04/26/2013, Additional history exists COVID-19 Vaccine ( - 2024- season) 2024 DTaP,Tdap,and Td Vaccines (8 - Td or [...] complete this topic Procedures * Due to [employer] law, this organization might not be sharing sensitive test results. Procedure Name Priority Date/Time Associated Diagnosis Comments CHLAMYDIA AND GONORRHEA, AMPLIFIED Routine 05/09/2016 12:00 AM EST from Last 3 Months or Most Recently Relevant to Health Maintenance Results * Due to [employer] law, this organization might not be sharing sensitive test results. * Chlamydia and Gonorrhoea, Amplified (05/09/2016 12:00 AM EST) URINE FOR GC CHLAMYDIA Negative - Results given to patient/fami ly CONVERTED LABS Comment: JIM DELGADO 04/30/2016 01:12:10 PM EST > Please fax results to [phone] Negative - Results given to patient/family Reason: Screening 05/09/2016 Narrative CONVERTED LABS - 05/09/2016 12:00 AM EST Urine for GC & Chlamydia us Jim Delgado MD LAB MICROBIOLOGY - GENERAL OR DERABLES Final Result CONVERTED LABS from Last 3 Months or Most Recently Relevant to Health Maintenance
--- OUTSIDE RECORDS SUMMARY | 2025-02-12 10:23 | XMS_ITS | Data Portability ---
Author Organization [place] - [facility] [id number] Address [address] [place] [address] Assessment No assessment recorded. Plan of Treatment Reminders Order Date Submit Date Provider Last Modified By Organization Details Last Modified Time Details Appointments None recorded. Lab None recorded. Referral None recorded. Procedures None recorded. Surgeries None recorded. Imaging None recorded. Medication Orders cephalexin 500 mg capsule 2023 024 [facility] #[id number], [address] [place], [address], 13:57:01 Patient TargetsNo targets recorded. Patient Instructions Encounter Date Encounter Id Patient Instructions Last Modified By Organization Details Last Modified Time 10/30/2023 [id number] toenail or fingernail avulsion: care instructions [email or web address] Not available 10/30/2023 13:57:10 Reason for Referral None Reported. Problems Name Problem SNOMED Code Status Onset Date Resolution Date Notes Provider Name and Address Organization Details Recorded Time Avulsion of toenail of right foot [id number] 02 Active 2023 Anna Berg NP [address] [place], [address], [place] - [facility] 13:55:39 Problem Notes None recorded. Procedures Surgical History Date Name Laterality Status Provider Name and Address Organization Details Recorded Time Toenail Removal completed Anna Berg NP [address] [place], [address], [place] - [facility] 10/30/2023 13:56:20 Knee arthroscopy/ surgery completed RICARDO RAJAN [place] - [facility] 10/30/2023 13:03:59 Imaging Results None recorded. Procedure Notes None recorded. Medical Equipment None Reported. Allergies No known drug allergies Medications Name Sig Start Date Stop Date Status Note LastModified by Organization Details LastModified Time cephalexin 500 mg capsule Take 1 capsule 3 times a day by oral route for 7 days, for prevent wound infectio n. 2023 active Not Available Not Available Not Avai lable Claritin active Not Available Not Avai lable Not Available spironolactone active Not Available No t Available Not Available Vitals Date Recorded Body height Body mass index (BMI) Body weight Oxygen saturation Oxygen saturation in Arterial blood by Pulse oximetry Heart rate Respiratory rate Body temperature Systolic And Diastolic Provider Name and Address Organization Details Last Updated DateTime 160.02 cm 33.7 kg/m2 42584.5 5 g 98 % 98 % 74 /min 18 /min 98.2 [degF] 120/75 mm[Hg] RICARDO RAJAN [place] - [facility] 13:02:50 Social History None recorded. Functional Status Question Answer Note LastModified by Organizat ion Details LastModified Time Do you use any illicit or recreational drugs? No Information not available 10/30/2023 Do you or have you ever used any other forms of tobacco or nicotine? No Information not available 10/30/2023 What is your level of alcohol consumption? Occasional Information not available 10/30/2023 Mental Status None recorded. Family History Nothing Reported. Medical History No medical history recorded. Gynecological History Statement/Question Response Is there any chance of ? No LMP Approximate Obstetrics History GPAL:G 0 P 0 0 0 0 Immunizations Vaccine Type Date Status Note Provider Nam e and Address Organization Details Recorded Time MMR 06/30/2017 completed RICARDO bob [place] - [facility] 10/30/2023 13:03:05 COVID-19, mRNA, LNP-S, PF, 30 mcg/0.3 mL dose 05/19/2020 completed RICARDO bob [place] - [facility] 10/30/2023 13:03:05 COVID-19, mRNA, LNP-S, PF, 30 mcg/0.3 mL dose 06/09/2020 completed RICARDO MINEO null, [place] - [facility] 10/30/2023 13:03:05 COVID-19, mRNA, LNP-S, PF, 30 mcg/0.3 mL dose 01/26/2021 completed RICARDO MINEO null, [place] - [facility] 10/30/2023 13:03:05 COVID-19, mRNA, LNP-S, bivalent, PF, 30 mcg/0.3 mL dose 07/01/2022 completed RICARDO MINEO null, [place] - [facility] 10/30/2023 13:03:05 Tdap 04/30/2016 completed RICARDO MINEO null, [place] - [facility] 10/30/2023 13:03:05 Hep B, unspecified formulation 06/30/2017 completed RICARDO MINEO null, [place] - [facility] 10/30/2023 13:03:05 HPV, unspecified formulation 06/30/2017 completed RICARDO MINEO null, [place] - [facility] 10/30/2023 13:03:05 Influenza, split virus, quadrivalent, PF 07/01/2022 completed RICARDO MINEO null, [place] - [facility] 10/30/2023 13:03:05 Influenza, split virus, quadrivalent, PF 01/26/2021 completed RICARDO MINEO null, [place] - [facility] 10/30/2023 13:03:05 Influenza, split virus, quadrivalent, PF 02/09/2020 completed RICARDO MINEO null, [place] - [facility] 10/30/2023 13:03:05 Influenza, split virus, quadrivalent, PF 02/09/2019 completed RICARDO MINEO null, [place] - [facility] 10/30/2023 13:03:05 Past Encounters Encounter ID Performer Location Encounter Start Date Encounter Closed Date Diagnosis/Indication Diagnosis SNOMED-CT Code Diagnosis ICD10 Code Diagnosis IMO Codes Diagnosis Note [id number] _[facility] [address] [address] 04/05/2019 11:34:11 04/05/2019 12:08:[id number] [place] [address] [address] [address] 04/23/2021 12:51:36 04/23/2021 15:54:[id number] [place] [address] [address] [address] 06/20/2016 13:47:59 06/20/2016 15:05:[id number] [place] [address] [facility] [address] 01/02/2016 11:44:13 01/02/2016 12:43:[id number] [place] [address] [facility] [address] 10/24/2016 13:05:59 10/24/2016 13:33:14 [id number] [place] [address] [address] 10/30/2023 12:46:01 10/30/2023 13:59:03 Avulsion of toenail of right foot [id number] S91.201A How can you care for yourself at home?If possible, prop up the injured area on a pillow anytime you sit or lie down during the next 3 days. Try to keep it above the level of your heart. This will help reduce swelling.L eave the bandage on, and if you have stitches, do not get them wet for the first 24 to 48 hours. Use a plastic bag to cover the area when you shower.If your doctor told you how to care for your wound, follow your doctor's instructio ns. If you did not get instructio ns, follow this general advice:Aft er the first 24 to 48 hours, you can remove the bandage and gently wash around the wound with clean water 2 times a day. If the bandage sticks to the wound, use warm water to loosen it. Do not scrub or soak the area.You may cover the wound with a thin layer of petroleum jelly, such as Vaseline, and a nonstick bandage.Ap ply more petroleum jelly and replace the bandage as needed.Do not go swimming.I f you have stitches, do not remove them on your own. Your doctor will tell you when to return to have the stitches removed.Be safe with medicines. Take pain medicines exactly as directed.I f the doctor gave you a prescripti on medicine for pain, take it as prescribed .If you are not taking a prescripti on pain medicine, ask your doctor if you can take an over-the-c ounter medicine.I f your doctor prescribed antibiotic s, take them as directed. Do not stop taking them just because you feel better. You need to take the full course of antibiotic s. Health Concerns Section Related Observation LastModified by Organization Detai ls LastModified Time None Recorded Concern Status LastModified by Organization Details LastModified Time None Recorded Advance Directives Directive None Recorded Payers Insurance Date Sequence Insurance Name Policy Number Policy Adams Covered Member ID Adams Member ID Guarantor Name 10/30/2023 1 [facility] [id number] 1 Katrina Steinberg [id number] Katrina Steinberg Notes Date Note Type Note Provider Name and Address Organization Details Recorded Time 10/30/2023 text/html Skin Redness UCR eported by [facility] UCFor quality, patient reportspainfulanderythe matous. For severity, patient reportsmoderate. For alleviating factors, patient reportsnothing gives relief. For symptoms, patient reportsswellingbut reportsno fever,no nausea, andno vomiting. For location, patient reportsright foot. For duration, patient reports4 days. For onset, patient reportssudden onset. AbscessReported by Patient Left big toenail lifted /damaged. The back of her shoe hit her toenail on Friday. Anna Berg NP [address] [place], [address], [place] - [facility] 10/31/2023 20:21:12 OBGyn Episode No OBEpisode recorded.
--- OUTSIDE RECORDS SUMMARY | 2025-02-12 10:23 | XMS_ITS | Encounter Summary ---
Author Organization [facility] Address [address] [place] [address] Phone Care Team Providers Care Assistant Production Manager Name Role Phone Cj Ibarra MD Primary Care Provider [phone] Encounter Details Date Type Department Care Team ([facility] st Contact Info) Description 03/03/2017 Conversion Encounter Cj Ibarra MD [address] [place] [phone] Cj Ibarra MD [address] [place] [address] Social History Tobacco Use Types Packs/Day Years [...] on filedocumented in this encounter Care Teams Assistant Production Manager Relationship Specialty Start Date End Date Cj Ibarra MD [address] [place] [address] PCP - General 06/11/16 12/27/21 documented as of this encounter
[2025-02-12 10:33] LABS: MANUAL DIFF FLAG NO
[2025-02-12 11:16] LABS: Hematocrit 44.2 % (37.0-47.0); Hemoglobin 14.7 g/dl (12.0-16.0); Imm Gran Abs Auto 0.04 X10*3/uL (0.00-0.03); Imm Gran Pct Auto 0.4 % (0.0-0.4); Lymphocytes Absolute Auto 4.0 X10*3/uL (1.2-4.9); Mean Corpuscular HGB Conc 33.3 g/dl (31.0-35.0); Mean Corpuscular Hemoglobin 30.3 pg (27.0-33.0); Mean Corpuscular Volume 91.1 fL (80.0-98.0); NRBC Abs Auto 0.000 X10*3/uL (0.0-0.012); NRBC Pct Auto 0.0 /100WBC (0.0-0.2); Platelet Count 228 X10*3/uL (160-400); Red Blood Count 4.85 X10*6/uL (4.20-5.50); White Blood Count 10.2 X10*3/uL (4.8-10.8)
[2025-02-12 12:03] LABS: Alanine Aminotransferase 23 U/L (0-31); Albumin Level 4.7 g/dL (3.5-5.0); Alkaline Phosphatase 86 U/L (39-117); Anion Gap 14 (12-20); Aspartate Amino Transferase 19 U/L (5-31); Blood Urea Nitrogen 14 mg/dL (9-16); Calcium 9.2 mg/dL (8.4-10.2); Carbon Dioxide 22 mmol/L (22-29); Chloride 109 mmol/L (96-108); Cholesterol 173 mg/dL (<200); Estimated Glomerular Filt Rate > 60; HDL Cholesterol 39 mg/dL (>40); Potassium 4.7 mmol/L (3.3-5.1); Sodium 140 mmol/L (135-145); Total Protein 6.8 g/dL (6.5-8.0); Triglycerides 148 mg/dL (<150)
[2025-02-12 12:47] LABS: Folate 14.0 ng/mL (> or = 4.0); Vitamin B12 1035 pg/mL (200-900)
== END 2025-02-12 10:20 | disposition home or self-care (01) ==
LOC: HO.LAB 10:19
PROVIDERS: PCP Family Medicine; Visit Provider Family Medicine
DX: Z00.00 Encounter for general adult medical examination without abnormal findings (principal); Z13.29 Encounter for screening for other suspected endocrine disorder; Z13.6 Encounter for screening for cardiovascular disorders; E53.8 Deficiency of other specified B group vitamins; E55.9 Vitamin D deficiency, unspecified
CPT/HCPCS: 36415; 80053; 80061; 82306; 82607; 82746; 84443; 85025

== ENCOUNTER 2025-02-16 15:58 | Outpatient (AMB) | payer OTHER, SELFPAY ==
--- NOTE | 2025-02-16 16:08 | MHC.PC.OV ---
Vital Signs 02/16/25 16:17 Height 5 ft 3 in Weight 183 lb 5 oz BMI 32.5 BP 100/62 Blood Pressure Location Lt brachial Position Sitting Respiration 15 Pulse 86 Pulse Source Pulse Oximeter Temp 97.1 F Temp Source Temporal Artery Scan Pulse Oximetry (%) 97 Oxygen Delivery Method Room Air Intake Visit Reasons: cpe Intake Note: Katrina presents in the office today for her annual physical. Allergies No Known Allergies Allergy (Verified 02/16/25 16:09) Tobacco use date assessed: 02/16/25 Dental Screening Dental Screen Date: 02/16/25 Did you have a dental problem in the last 6 months where you did not have access to dental care?: No Was dental information given to patient?: Patient has dentist HPI cpe HPI Details 29 y/o female presents for a CPE with f/u labs and health maint. Labs drawn 02/10/25. Reviewed labs with pt. Triglycerides 148. TC 173. LDL 105. HDL low at 39. Vitamin B12 1035 pg/mL. BP today 100/62, 86p. She is on spironolactone 150mg b.i. d Reports some fatigue. Reports some snoring. [facility] Medical History Endometriosis Migraine with aura Seasonal allergies Surgical History Hx of bilateral breast reduction surgery Hx of wisdom tooth extraction Hx of tonsillectomy H/O left knee surgery Family History (Updated 02/16/25 @ 16:16 by Ruthann Armstrong CMA) Mother Hypertension FH: mental illness Anxiety Father Hypertension Paternal Grandmother Diabetes Social History (Updated 02/16/25 @ 16:17 by Ruthann Armstrong CMA) Housing: House Alcohol intake: current Alcohol intake frequency: a few times a month Patient Tobacco Use Status: Never used Tobacco e-Cigarette/Vaping Use: Never Used Second Hand Smoke Exposure: Yes service: No Current occupational status: employed 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 1. Little interest or pleasure in doing things: not at all 2. Feeling down, depressed, or hopeless: not at all 3. Trouble falling or staying asleep, or sleeping too much: not at all 4. Feeling tired or having little energy: more than half the days 5. Poor appetite or overeating: several days 6. Feeling bad about yourself - or that you are a failure or have let yourself or your family down: not at all 7. Trouble concentrating on things, such as reading the newspaper or watching television: not at all 8. Moving or speaking so slowly that other people could have noticed. Or the opposite - being so fidgety or restless that you have been moving around a lot more than usual: not at all 9. Thoughts that you would be better off or of hurting yourself in some way: not at all Total score: 3 Depression Screening Interpretation: Negative Depression Screening Done: Yes 03801 - PHQ-9 Billing: Yes Source: Developed by Drs. Jacky Alas, Domenica Gonzales, Filipe Tomlinson and colleagues, with an educational natacha from [employer]. Thrive Questionnaire Date Thrive assessed: 02/16/25 I am a: Patient What is your living situation today?: I have a steady place to live Within the past 12 months, did the food you bought not last and you didn't have the money to get more?: Never true Within the past 12 months, did you worry whether your food would run out before you got money to buy more?: Never true Do you have trouble paying for medicines?: No Do you have trouble getting transportation to medical appointments?: No Do you have trouble paying your heating and electricity bill?: No Do you have trouble taking care of your child, family member or friend?: No Do you have trouble with day-to-day activities such as bathing, preparing meals, shopping, managing finances, etc.?: No Are you currently unemployed and looking for a job?: No Are you interested in more education?: No Please select the resources that you would like help with: None Currently or been in a relationship where the following occur: No concerns reported THRIVE Score: 0 AUDIT C Alcohol Use Questionnaire (AUDIT-C) 1. How often do you have a drink containing alcohol?: Monthly or less 2. How many drinks containing alcohol do you have on a typical day when you are drinking?: 1 or 2 3. How often do you have six or more drinks on one occasion?: Less than monthly Total Score: 2 KELLY-7 AMB Questionnaire KELLY-7 Date KELLY - 7 assessed: 02/16/25 Feeling nervous, anxious, or on edge: 0 = Not at all Not being able to stop or control worryin = Not at all Worrying too much about different things: 0 = Not at all Trouble relaxin = Not at all Being so restless that it is hard to sit still: 0 = Not at all Becoming easily annoyed or irritable: 0 = Not at all Feeling afraid as if something awful might happen: 0 = Not at all Total KELLY-7 score (0-4 normal; 5-9 mild; 10-14 moderate; 15-21 severe): 0 Source: Developed by Drs. Jacky Alas, Domenica Gonzales, Filipe Tomlinson and colleagues, with an educational natacha from [employer]. KELLY-7 Assessment Billing KELLY-7 Assessment Tool: KELLY-7 Assessment 68810 Review of Systems Const Denies chills, Denies fatigue, Denies fever(s), Denies headache(s) and Denies weakness Eyes Denies change in vision ENT Denies dizziness, Denies headache(s), Denies hearing loss, Denies nasal congestion, Denies sinus pain, Denies sinus pressure and Denies sore throat Card Denies chest pain, Denies lightheadedness, Denies dyspnea and Denies other (palpitations) Resp Denies cough, Denies dyspnea and Denies wheezing GI Denies abdominal pain, Denies melena, Denies hematochezia, Denies change in bowel habits, Denies dyspepsia and Denies nausea Denies hematuria and Denies dysuria Musc Denies abnormal gait, Denies myalgias, Denies arthralgias, Denies numbness and Denies tingling Skin/Breast Denies rash, Denies unusual bruising and Denies wounds Neuro Denies abnormal gait, Denies dizziness, Denies headache(s), Denies memory loss, Denies numbness, Denies Sensory deficit (Neuro), Denies tingling and Denies weakness Psych Denies anxiety, Denies depression and Denies memory loss Endo Denies cold intolerance, Denies fatigue, Denies heat intolerance, Denies polydipsia and Denies polyuria Jean/Lymph Denies easy bleeding and Denies easy bruising Aller/Immun Denies wheezing Physical exam (Primary Care) Vital Signs: Last Vital Signs Temp 97.1 F 02/16/25 16:17 Pulse 86 02/16/25 16:17 Resp 15 02/16/25 16:17 BP 100/62 02/16/25 16:17 Pulse Ox 97 02/16/25 16:17 Oxygen Delivery Method Room Air 02/16/25 16:17 BMI result Body Mass Index 32.5 Tobacco/Smoking Status: Tobacco use Status Tobacco use date assessed 02/16/25 02/16/25 16:11 Patient Tobacco Use Status Never used Tobacco 02/16/25 16:17 e-Cigarette/Vaping Use Never Used 02/16/25 16:17 PHQ-9: PHQ-9 Score PHQ-9: Total score 3 02/16/25 16:34 Depression Screening Interpretation: Negative Thrive Assessment: Date of Thrive Assessment Date Thrive assessed 02/16/25 02/16/25 16:11 Currently or been in a relationship where the following occur: No concerns reported Const General: no acute distress, well developed, alert and awake Nutritional Appearance: well nourished Orientation/consciousness: patient oriented x3 HENMT Head: Yes normocephalic and Yes atraumatic Ears: hearing grossly normal bilaterally and TM's normal bilaterally General nose exam: Normal external nose present and Normal nares present Mouth: Normal oral and palatal mucosa present and moist mucous membranes Teeth and gingiva: dentition normal Throat: Yes posterior oropharynx normal Eyes General: appearance normal, both eyes and all related structures Pupils: Equal, round and reactive pupils present and Pupil accommodation reflex normal EOM: EOMs intact bilaterally Neck Neck: Yes normal visual inspection, Yes no lymphadenopathy and Yes trachea midline Thyroid: Thyroid normal Carotids: no bruits Lymphatic: no lymphadenopathy noted Chest Chest palpation & inspection: normal inspection of the chest Resp Effort & Inspection: normal respiratory effort Auscultation: clear to auscultation bilaterally Cardio Rate: regular rate Rhythm: regular rhythm Heart sounds: S1 normal heart sound present, S2 normal heart sound present, no gallops, no murmurs and no rubs Bruits: no abdominal aortic bruits and no carotid bruits GI Palpation (GI): No Abdominal aortic bruit present, Soft to palpation, nontender, No hepatosplenomegaly present and No Rebound tenderness present Auscultation: normal bowel sounds General: Yes no CVA tenderness Back/Spine/Pelvis Back: no CVA tenderness Cervical Spine: cervical ROM normal and No Cervical spine tenderness Thoracic/Lumbar Spine: thoraco-lumbar ROM normal, No pain with thoraco-lumbar ROM, No thoracic spinal tenderness and No lumbar spinal tenderness Skin Lesions: no lesions Rashes: no rashes Trauma: no lacerations or abrasions Wounds: no wounds Nails: normal Neuro General: patient oriented x3 Cranial nerves: Yes Equal, round and reactive pupils present Cognition (Neuro): normal cognition Gait exam (Neuro): Normal gait present Motor exam (neuro): 5/5 motor strength present throughout Sensory Exam: No Sensory deficit (Neuro) Deep tendon reflexes (DTR's): Right patellar reflex intensity grade: 2+ and Left patellar reflex intensity grade: 2+ Extrem General: Yes normal to inspection and No edema Psych Appearance: grossly normal Affect: normal affect Attitude: cooperative Thought process: Normal thought process present Coding Level of Care Code Est Pt Level 3 (09330) Est Pt Prev Care 18-39y(54076) Diagnoses Adult general medical exam Z00.00 Hypersomnia G47.10 Fatigue R53.83 Hyperlipidemia E78.5 Screening for cervical cancer Z12.4 Additional Codes KELLY-7 Assessment Billing - KELLY-7 Assessment Tool: KELLY-7 Assessment 98272 ([id number]) PHQ-9 - 38207 - PHQ-9 Billing: Yes ([id number]) Assessment & Plan Assessment & Plan (1) Adult general medical exam: Code(s): Z00.00 - Encounter for general adult medical examination without abnormal findings Category: Medical Plan: 29-year-old female presents for complete physical exam Encouraged healthy diet with active lifestyle and plenty of exercise (2) Hypersomnia: Code(s): G47.10 - Hypersomnia, unspecified Category: Medical Plan: As above (3) Fatigue: Code(s): R53.83 - Other fatigue Category: Medical Plan: Fatigue and hypersomnia. Labs are unrevealing Also some snoring Refer her to Sleep Medicine to rule out sleep apnea She also notes that her activity levels have decreased since changing jobs She will try to increase her activity with exercise If not improving call or return to office (4) Hyperlipidemia: Code(s): E78.5 - Hyperlipidemia, unspecified Category: Medical Plan: Mildly elevated LDL cholesterol and HDL is slightly low She has changed jobs and her activity level has decreased. Encouraged a diet low in saturated fats and cholesterol Encouraged increasing exercise (5) Screening for cervical cancer: Code(s): Z12.4 - Encounter for screening for malignant neoplasm of cervix Category: Medical Plan: [place] [facility] [place] She is up-to-date Follow-up with finished cloth checker as recommended
[2025-02-16 16:17] VITALS: BP 100/62; PULSE 86; RESP 15; TEMP 36.2; O2SAT 97; BMI 32.5
--- OUTSIDE RECORDS SUMMARY | 2025-02-16 20:04 | XMS_ITS | Clinical Summary ---
Author Organization [facility] Address [address] [place] [address] Phone Care Team Providers Care Service Delivery Management Consultant Name Role Phone Unavailable Primary Care Provider [...] complete this topic Procedures * Due to [place] law, this organization might not be sharing sensitive test results. Procedure Name Priority Date/Time Associated Diagnosis Comments CHLAMYDIA AND GONORRHEA, AMPLIFIED Routine 05/09/2016 12:00 AM EST from Last 3 Months or Most Recently Relevant to Health Maintenance Results * Due to [place] law, this organization might not be sharing sensitive test results. * Chlamydia and Gonorrhoea, Amplified (05/09/2016 12:00 AM EST) URINE FOR GC CHLAMYDIA Negative - Results given to patient/fami ly CONVERTED LABS Comment: JIM DELGADO 04/30/2016 01:12:10 PM EST > Please fax results to [phone] Negative - Results given to patient/family Reason: Screening 05/09/2016 Narrative CONVERTED LABS - 05/09/2016 12:00 AM EST Urine for GC & Chlamydia us Jim Delgado MD LAB MICROBIOLOGY - GENERAL OR DERABLES Final Result CONVERTED LABS from Last 3 Months or Most Recently Relevant to Health Maintenance
--- OUTSIDE RECORDS SUMMARY | 2025-02-16 20:04 | XMS_ITS | Encounter Summary ---
Author Organization [facility] Address [address] [place] [address] Phone Care Team Providers Care Speeder Worker Name Role Phone Cj Ibarra MD Primary Care Provider Encounter Details Date Type Department Care Team ([facility] st Contact Info) Description 03/03/2017 Conversion Encounter Cj Ibarra MD [address] [place] [id number] Cj Ibarra MD [address] [place] [phone] Social History Tobacco Use Types Packs/Day Years [...] on filedocumented in this encounter Care Teams Speeder Worker Relationship Specialty Start Date End Date Cj Ibarra MD [address] [place] [phone] PCP - General 06/11/16 12/27/21 documented as of this encounter
--- OUTSIDE RECORDS SUMMARY | 2025-02-16 20:04 | XMS_ITS | Data Portability ---
Author Organization [place] - [facility] [id number] Address [address] [place] [address] Assessment No assessment recorded. Plan of Treatment Reminders Order Date Submit Date Provider Last Modified By Organization Details Last Modified Time Details Appointments None recorded. Lab None recorded. Referral None recorded. Procedures None recorded. Surgeries None recorded. Imaging None recorded. Medication Orders cephalexin 500 mg capsule 2023 024 [facility][id number], [address] [place], [address], 13:57:01 Patient TargetsNo targets recorded. Patient Instructions Encounter Date Encounter Id Patient Instructions Last Modified By Organization Details Last Modified Time 10/30/2023 [id number] toenail or fingernail avulsion: care instructions [email or web address] Not available 10/30/2023 13:57:10 Reason for Referral None Reported. Problems Name Problem SNOMED Code Status Onset Date Resolution Date Notes Provider Name and Address Organization Details Recorded Time Avulsion of toenail of right foot 594724569929403 02 Active 2023 Anna Berg NP [address] [place], [address], [place] [facility] 13:55:39 Problem Notes None recorded. Procedures Surgical History Date Name Laterality Status Provider Name and Address Organization Details Recorded Time Toenail Removal completed Anna Berg NP [address] [place], [address], [place] - [facility] 10/30/2023 13:56:20 Knee [...] Last Updated DateTime 160.02 cm 33.7 kg/m2 53007.5 5 g 98 % 98 % 74 [...] ICD10 Code Diagnosis IMO Codes Diagnosis Note [id number] _[facility] [address] [address] 04/05/2019 11:34:11 04/05/2019 12:08:[id number] [place] [address] [address] [address] 04/23/2021 12:51:36 04/23/2021 15:54:[id number] [place] [address] [address] [address] 06/20/2016 13:47:59 06/20/2016 15:05:[id number] [place] [address] [facility] [address] 01/02/2016 11:44:13 01/02/2016 12:43:[id number] [place] [address] [facility] [address] 10/24/2016 13:05:59 10/24/2016 13:33:14 [id number] [place] [address] [address] 10/30/2023 12:46:01 10/30/2023 13:59:03 Avulsion of toenail of right foot [id number] S91.201A How can you care for yourself [...] Adams Member ID Guarantor Name 10/30/2023 1 [facility] [id number] 1 Katrina Steinberg [id number] Katrina Steinberg Notes Date Note Type Note [...] Berg NP [address] [place], [address], [place] - [facility] 10/31/2023 20:21:12 OBGyn Episode No OBEpisode recorded.
--- OUTSIDE RECORDS SUMMARY | 2025-02-16 20:04 | XMS_ITS | Patient Health Record ---
Author Organization [facility] Address [address] [place] [address] Care Team Providers Care Proposal Lead Writer Name Role Phone Ara Mclaughlin Unavailable [phone] Reason For Referral No Information Medications Medication [...] Coverage End Date [employer] [address] [address] [place] [address] [id number] OVIDIO DEAN Child - Insured has Financial Responsibility Medical (General) History Medical History History ICD Code Dyspareunia not due to a substance or kn own physiological condition F52.6 Surgical History Surgery Date(Month/Year) L Knee Surgery 2011 L Knee Surgery 2010 L Knee Surgery 2008 Tonsillectomy 2006 [place] teeth 2016 Hospitalization History Reason Date(Month/Year) See Surgical Hx
== END 2025-02-16 16:55 | disposition home or self-care (01) ==
LOC: HO.HMCFM 15:59
PROVIDERS: PCP Family Medicine; Visit Provider Family Medicine
DX: Z00.00 Encounter for general adult medical examination without abnormal findings (principal)

== ENCOUNTER → 2025-02-16 15:58 | Outpatient (BNVA) | payer OTHER, SELFPAY | PROVIDERS: PCP Family Medicine; Visit Provider Family Medicine | DX: Z00.00 Encounter for general adult medical examination without abnormal findings (principal); R53.83 Other fatigue; G47.10 Hypersomnia, unspecified; E78.5 Hyperlipidemia, unspecified | CPT/HCPCS: 96127 ==